=== PATIENT | female | born 1965 | race Two or more races ===

== ENCOUNTER → 2024-05-24 | Outpatient (CLI) | payer OTHER, MEDICAID, SELFPAY ==
--- NOTE | 2024-05-24 09:22 | XR_ITS ---
Examination:Left hip AP, lateral, AP pelvis 3 views Technique: Hip AP lateral, AP pelvis, 3 views Exam date and time:May 24, 2024 0925 hours INDICATIONS: Left hip pain several months. FINDINGS: Moderate left hip osteoarthritis No hip fracture or hip dislocation Moderate right hip osteoarthritis. Bones of the pelvis intact IMPRESSION: Moderate bilateral hip osteoarthritis.
[2024-05-24 10:32] LABS: Basophils % (Auto) 1 % (0-2.5); Eosinophils % (Auto) 1 % (0-10); Hematocrit 36.9 % (36.0-46.0); Hemoglobin 12.2 g/dL (12.0-16.0); Immature Granulocytes % (Auto) 1 % (0-0); Immature Granulocytes Auto 0.02 Thou/mm3 (0.00-0.00); Lymphocytes # (Auto) 0.7 Thou/mm3 (1.0-4.8); Lymphocytes % (Auto) 16 % (10-50); Mean Corpuscular HGB Conc 33.1 g/dl (31.0-37.0); Mean Corpuscular Hemoglobin 32.2 pg (25.0-35.0); Mean Corpuscular Volume 97 fL (80-100); Monocytes # (Auto) 0.4 Thou/mm3 (0.0-0.8); Monocytes % (Auto) 9 % (0-12); Neutrophils # (Auto) 3.1 Thou/mm3 (1.8-7.7); Neutrophils % (Auto) 73 % (37-80); Nucleated Red Blood Cell % 0 /100 WBC (0); Platelet Count 185 Thou/mm3 (140-440); RDW Standard Deviation 53.1 fL (36.4-46.3); Red Blood Count 3.79 Miln/mm3 (4.00-5.20); White Blood Count 4.3 Thou/mm3 (3.6-11.0)
[2024-05-24 11:02] LABS: Sed Rate (ESR) 7 mm/hr (0-30)
[2024-05-24 11:12] LABS: Alanine Aminotransferase 39 U/L (10-49); Albumin, Serum 4.4 gm/dL (3.5-5.0); Albumin/Globulin Ratio 1.8 (1.2-2.2); Alkaline Phosphatase 68 U/L (46-116); Anion Gap 8 (7-16); Aspartate Amino Transferase 32 U/L (0-34); BUN/Creatinine Ratio 21 Ratio (12-20); Bilirubin,Total 0.6 mg/dL (0.3-1.2); Blood Urea Nitrogen 15 mg/dL (9-23); C-Reactive Protein < 0.4 mg/dL (0.0-0.9); Calcium 9.4 mg/dL (8.3-10.6); Calcium (Corrected) 9.4 mg/dL (8.5-10.1); Carbon Dioxide 25.3 mMol/L (20.0-31.0); Chloride 108 mMol/L (98-107); Creatinine (Component) 0.7 mg/dL (0.6-1.3); Globulin 2.5 gm/dL (2.3-3.5); Glucose 132 mg/dL (74-106); Osmolality,Calculated 284 (275-295); Potassium 3.8 mMol/L (3.4-5.1); Sodium 141 mMol/L (136-145); Total Protein 6.9 gm/dL (5.7-8.2); eGFR > 60 See Note
== END | disposition home or self-care (01) ==
PROVIDERS: PCP Family Medicine; Referring Provider Internal Medicine; Visit Provider Radiology Diagnostic Radiology
DX: M16.0 Bilateral primary osteoarthritis of hip (principal); G35 Multiple sclerosis; L40.0 Psoriasis vulgaris; L40.59 Other psoriatic arthropathy; M17.0 Bilateral primary osteoarthritis of knee; M25.552 Pain in left hip; M79.7 Fibromyalgia; R21 Rash and other nonspecific skin eruption; Z92.25 Personal history of immunosuppression therapy
CPT/HCPCS: 36415; 73502; 80053; 85025; 85652; 86140

== ENCOUNTER → 2024-06-02 | Outpatient (CLI) | payer OTHER, MEDICAID, SELFPAY ==
[2024-06-02 09:53] LABS: Quantiferon-TB* See Sep Rpt
== END | disposition home or self-care (01) ==
LOC: COPL 09:30
PROVIDERS: PCP Family Medicine; Referring Provider Nurse Practitioner Family; Visit Provider Nurse Practitioner Family
DX: L40.0 Psoriasis vulgaris (principal)
CPT/HCPCS: 86480

== ENCOUNTER → 2024-06-29 | Outpatient (CLI) | payer OTHER, MEDICAID, SELFPAY ==
--- NOTE | 2024-06-29 10:51 | XR_ITS ---
Examination: PA lateral chest 2 views Technique: Upright PA lateral chest 2 views Exam date and time: June 29, 2024 1012 hrs. Indications: Coughing beginning 3 weeks ago. Findings: Pneumonia left base and lingular segment left upper lobe Right lung clear Normal heart size Impression: Pneumonia left base and lingular segment left upper lobe
== END | disposition home or self-care (01) ==
PROVIDERS: PCP Family Medicine; Referring Provider Family Medicine; Visit Provider Family Medicine
DX: J18.9 Pneumonia, unspecified organism (principal)
CPT/HCPCS: 71046

== ENCOUNTER → 2024-08-05 | Outpatient (BNVA) | payer OTHER, MEDICAID, SELFPAY | END | disposition home or self-care (01) | PROVIDERS: PCP Family Medicine; Referring Provider Family Medicine; Visit Provider Urology | DX: N31.9 Neuromuscular dysfunction of bladder, unspecified (principal); G89.4 Chronic pain syndrome; E11.9 Type 2 diabetes mellitus without complications; G35 Multiple sclerosis; E66.9 Obesity, unspecified; Z68.35 Body mass index [BMI] 35.0-35.9, adult | CPT/HCPCS: 81003; 99212; G0463 ==

== ENCOUNTER → 2024-08-13 | Outpatient (CLI) | payer OTHER, MEDICAID, SELFPAY ==
[2024-08-13 10:39] LABS: Basophils % (Auto) 1 % (0-2.5); Eosinophils # (Auto) 0.1 Thou/mm3 (0.0-0.5); Eosinophils % (Auto) 2 % (0-10); Hematocrit 38.2 % (36.0-46.0); Hemoglobin 12.6 g/dL (12.0-16.0); Immature Granulocytes % (Auto) 0 % (0-0); Immature Granulocytes Auto 0.01 Thou/mm3 (0.00-0.00); Lymphocytes # (Auto) 0.7 Thou/mm3 (1.0-4.8); Lymphocytes % (Auto) 15 % (10-50); Mean Corpuscular Hemoglobin 32.6 pg (25.0-35.0); Mean Corpuscular Volume 99 fL (80-100); Monocytes # (Auto) 0.4 Thou/mm3 (0.0-0.8); Monocytes % (Auto) 8 % (0-12); Neutrophils # (Auto) 3.4 Thou/mm3 (1.8-7.7); Neutrophils % (Auto) 74 % (37-80); Nucleated Red Blood Cell % 0 /100 WBC (0); Platelet Count 183 Thou/mm3 (140-440); Red Blood Count 3.86 Miln/mm3 (4.00-5.20); White Blood Count 4.6 Thou/mm3 (3.6-11.0)
[2024-08-13 10:54] LABS: Alanine Aminotransferase 19 U/L (10-49); Albumin, Serum 4.4 gm/dL (3.5-5.0); Alkaline Phosphatase 85 U/L (46-116); Anion Gap 9 (7-16); Aspartate Amino Transferase 23 U/L (0-34); BUN/Creatinine Ratio 17 Ratio (12-20); Bilirubin,Total 0.6 mg/dL (0.3-1.2); Blood Urea Nitrogen 12 mg/dL (9-23); C-Reactive Protein < 0.5 mg/dL (0.0-0.9); Calcium 9.5 mg/dL (8.3-10.6); Calcium (Corrected) 9.5 mg/dL (8.5-10.1); Carbon Dioxide 25.4 mMol/L (20.0-31.0); Chloride 109 mMol/L (98-107); Creatinine (Component) 0.7 mg/dL (0.6-1.3); Globulin 2.2 gm/dL (2.3-3.5); Glucose 131 mg/dL (74-106); Osmolality,Calculated 286 (275-295); Potassium 3.9 mMol/L (3.4-5.1); Sodium 143 mMol/L (136-145); Total Protein 6.6 gm/dL (5.7-8.2); eGFR > 60 See Note
[2024-08-13 11:12] LABS: Sed Rate (ESR) 23 mm/hr (0-30)
[2024-08-13 11:34] LABS: Hepatitis A Antibody IgM Non Reactive (Non React); Hepatitis B Core Antibody IgM Non Reactive (Non React); Hepatitis B Surface Antigen Non Reactive (Non React); Hepatitis C Antibody Non Reactive (Non React)
== END | disposition home or self-care (01) ==
LOC: COPL 09:22
PROVIDERS: PCP Family Medicine; Referring Provider Physician Assistant Medical
DX: D50.9 Iron deficiency anemia, unspecified (principal); E11.40 Type 2 diabetes mellitus with diabetic neuropathy, unspecified; E78.00 Pure hypercholesterolemia, unspecified; F34.1 Dysthymic disorder; G35 Multiple sclerosis; I10 Essential (primary) hypertension; L40.0 Psoriasis vulgaris; L40.59 Other psoriatic arthropathy; M17.0 Bilateral primary osteoarthritis of knee; M23.50 Chronic instability of knee, unspecified knee; M25.512 Pain in left shoulder; M25.552 Pain in left hip; M54.2 Cervicalgia; M79.645 Pain in left finger(s); M79.7 Fibromyalgia; N63.20 Unspecified lump in the left breast, unspecified quadrant; R21 Rash and other nonspecific skin eruption; R76.11 Nonspecific reaction to tuberculin skin test without active tuberculosis; S46.812A Strain of other muscles, fascia and tendons at shoulder and upper arm level, left arm, initial encounter; Z68.35 Body mass index [BMI] 35.0-35.9, adult; Z92.25 Personal history of immunosuppression therapy; X58.XXXA Exposure to other specified factors, initial encounter
CPT/HCPCS: 36415; 80053; 80074; 85025; 85652; 86140

== ENCOUNTER → 2024-08-17 | Outpatient (CLI) | payer OTHER, MEDICAID, SELFPAY ==
[2024-08-17 10:01] LABS: Quantiferon-TB* See Sep Rpt
== END | disposition home or self-care (01) ==
LOC: COPL 09:36
PROVIDERS: PCP Family Medicine; Referring Provider Nurse Practitioner; Visit Provider Nurse Practitioner
DX: L40.0 Psoriasis vulgaris (principal)
CPT/HCPCS: 86480

== ENCOUNTER → 2024-08-31 | Outpatient (CLI) | payer OTHER, MEDICAID, SELFPAY ==
--- NOTE | 2024-08-31 13:00 | XR_ITS ---
Examination: Retroperitoneal ultrasound, complete Technique: Multiple high resolution grayscale images of the retroperitoneum obtained, including kidneys and bladder. Exam date and time:12/01/2024 1300 hours INDICATIONS: Urinary incontinence 6 months, diagnosis neurogenic bladder FINDINGS: Right kidney 11.8 cm cortex 2.1 cm Left kidney 12.4 cm cortex 1.7 cm 13 mm upper pole 17 mm upper pole left renal cyst Moderate bilateral renal parenchymal scar formation No bladder mass or bladder calculi, bladder prevoid volume 203 cc IMPRESSION: Moderate bilateral renal parenchymal scar formation, no hydronephrosis
== END | disposition home or self-care (01) ==
PROVIDERS: PCP Family Medicine; Referring Provider Urology; Visit Provider Urology
DX: N28.89 Other specified disorders of kidney and ureter (principal)
CPT/HCPCS: 76770

== ENCOUNTER → 2024-09-14 | Outpatient (BNVA) | payer OTHER, MEDICAID, SELFPAY | END | disposition home or self-care (01) | PROVIDERS: PCP Family Medicine; Referring Provider Family Medicine; Visit Provider Urology | DX: D41.4 Neoplasm of uncertain behavior of bladder (principal); N35.92 Unspecified urethral stricture, female; N31.9 Neuromuscular dysfunction of bladder, unspecified; G35 Multiple sclerosis | CPT/HCPCS: 52214; 81003; 96372; A4217; A4649; C1894; J1580; A9270 ==

== ENCOUNTER → 2024-10-12 | Outpatient (CLI) | payer OTHER, MEDICAID, SELFPAY ==
[2024-10-12 11:20] LABS: Albumin, Serum 4.3 gm/dL (3.5-5.0); Anion Gap 8 (7-16); BUN/Creatinine Ratio 20 Ratio (12-20); Blood Urea Nitrogen 16 mg/dL (9-23); Calcium 9.1 mg/dL (8.3-10.6); Calcium (Corrected) 9.1 mg/dL (8.5-10.1); Carbon Dioxide 25.6 mMol/L (20.0-31.0); Chloride 105 mMol/L (98-107); Creatinine (Component) 0.8 mg/dL (0.6-1.3); Glucose 182 mg/dL (74-106); Osmolality,Calculated 283 (275-295); Phosphorous 3.1 mg/dL (2.4-5.1); Sodium 139 mMol/L (136-145); eGFR > 60 See Note
== END | disposition home or self-care (01) ==
LOC: COPL 10:32
PROVIDERS: PCP Family Medicine; Referring Provider Family Medicine; Visit Provider Family Medicine
DX: Z01.812 Encounter for preprocedural laboratory examination (principal); E11.21 Type 2 diabetes mellitus with diabetic nephropathy
CPT/HCPCS: 36415; 80069

== ENCOUNTER → 2024-10-13 | Outpatient (CLI) | payer OTHER, MEDICAID, SELFPAY ==
--- NOTE | 2024-10-13 08:00 | XR_ITS ---
Examination: CT abdomen and pelvis without contrast. Coronal 3-D reconstructions. Sagittal 2-D reconstructions. Date and time of exam:October 13, 2024 0759 hours INDICATIONS: Diarrhea 6 months CTDI: vol (mGy): 10.6 DLP: (mGycm): 624 Technique: Axial images of the abdomen have been obtained, 3 mm slice thickness Intravenous contrast material has not been administered. Low dose protocols were performed. One or more of the following dose reduction techniques were used; automated exposure control, adjustment of the mA and/or KV according to patient size, use of iterative reconstruction technique. Findings: No focal liver or splenic lesions No gallstones No pancreatic or adrenal mass Perinephric stranding No renal or ureteral calculi, no hydronephrosis Aorta calcification no aneurysmal dilatation No pericecal inflammatory change No bowel obstruction No diverticulitis No uterine or adnexal mass Urinary bladder wall thickening up to 8 mm Advanced disc narrowing L5-S1 IMPRESSION: Urinary bladder wall thickening up to 8 mm, cystitis would be included in the differential
== END | disposition home or self-care (01) ==
LOC: CCTX 07:38
PROVIDERS: PCP Family Medicine; Referring Provider Family Medicine; Visit Provider Family Medicine
DX: N32.9 Bladder disorder, unspecified (principal); R19.4 Change in bowel habit
CPT/HCPCS: 74176

== ENCOUNTER → 2024-11-17 | Outpatient (CLI) | payer OTHER, MEDICAID, SELFPAY ==
[2024-11-17 09:29] LABS: Quantiferon-TB* See Sep Rpt
[2024-11-17 10:31] LABS: Basophils # (Auto) 0.1 Thou/mm3 (0.0-0.2); Basophils % (Auto) 1 % (0-2.5); Eosinophils # (Auto) 0.1 Thou/mm3 (0.0-0.5); Eosinophils % (Auto) 3 % (0-10); Hematocrit 36.8 % (36.0-46.0); Hemoglobin 12.1 g/dL (12.0-16.0); Immature Granulocytes Auto 0.02 Thou/mm3 (0.00-0.00); Lymphocytes # (Auto) 0.7 Thou/mm3 (1.0-4.8); Lymphocytes % (Auto) 19 % (10-50); Mean Corpuscular HGB Conc 32.9 g/dl (31.0-37.0); Mean Corpuscular Hemoglobin 31.3 pg (25.0-35.0); Mean Corpuscular Volume 95 fL (80-100); Monocytes # (Auto) 0.3 Thou/mm3 (0.0-0.8); Monocytes % (Auto) 9 % (0-12); Neutrophils # (Auto) 2.4 Thou/mm3 (1.8-7.7); Neutrophils % (Auto) 68 % (37-80); Nucleated Red Blood Cell # 0.00 Thou/mm3 (0.00-0.00); Nucleated Red Blood Cell % 0 /100 WBC (0); Platelet Count 158 Thou/mm3 (140-440); RDW Standard Deviation 51.1 fL (36.4-46.3); Red Blood Count 3.87 Miln/mm3 (4.00-5.20); White Blood Count 3.5 Thou/mm3 (3.6-11.0)
[2024-11-17 10:49] LABS: Alanine Aminotransferase 21 U/L (10-49); Albumin, Serum 4.0 gm/dL (3.5-5.0); Albumin/Globulin Ratio 1.7 (1.2-2.2); Alkaline Phosphatase 105 U/L (46-116); Anion Gap 9 (7-16); Aspartate Amino Transferase 21 U/L (0-34); BUN/Creatinine Ratio 15 Ratio (12-20); Bilirubin,Total 0.6 mg/dL (0.3-1.2); Blood Urea Nitrogen 12 mg/dL (9-23); C-Reactive Protein < 0.5 mg/dL (0.0-0.9); Calcium 9.2 mg/dL (8.3-10.6); Calcium (Corrected) 9.2 mg/dL (8.5-10.1); Carbon Dioxide 26.5 mMol/L (20.0-31.0); Chloride 107 mMol/L (98-107); Creatinine (Component) 0.8 mg/dL (0.6-1.3); Globulin 2.3 gm/dL (2.3-3.5); Glucose 157 mg/dL (74-106); Osmolality,Calculated 285 (275-295); Potassium 3.9 mMol/L (3.4-5.1); Sodium 142 mMol/L (136-145); Total Protein 6.3 gm/dL (5.7-8.2); eGFR > 60 See Note
[2024-11-17 11:15] LABS: Sed Rate (ESR) 22 mm/hr (0-30)
== END | disposition home or self-care (01) ==
LOC: COPL 09:11
PROVIDERS: PCP Family Medicine
DX: D50.9 Iron deficiency anemia, unspecified (principal); E11.40 Type 2 diabetes mellitus with diabetic neuropathy, unspecified; E78.00 Pure hypercholesterolemia, unspecified; F34.1 Dysthymic disorder; G35 Multiple sclerosis; I10 Essential (primary) hypertension; L40.0 Psoriasis vulgaris; L40.59 Other psoriatic arthropathy; M17.0 Bilateral primary osteoarthritis of knee; M23.50 Chronic instability of knee, unspecified knee; M25.512 Pain in left shoulder; M25.552 Pain in left hip; M25.561 Pain in right knee; M25.562 Pain in left knee; M54.2 Cervicalgia; M79.645 Pain in left finger(s); M79.7 Fibromyalgia; N63.20 Unspecified lump in the left breast, unspecified quadrant; R21 Rash and other nonspecific skin eruption; R76.11 Nonspecific reaction to tuberculin skin test without active tuberculosis; S46.812A Strain of other muscles, fascia and tendons at shoulder and upper arm level, left arm, initial encounter; X58.XXXA Exposure to other specified factors, initial encounter; Z92.25 Personal history of immunosuppression therapy
CPT/HCPCS: 36415; 80053; 85025; 85652; 86140; 86480

== ENCOUNTER 2024-11-22 08:10 | Day surgery (SDC) | payer OTHER, MEDICAID, SELFPAY ==
--- NOTE | 2024-11-19 06:00 | EKG_ITS ---
[facility] Test Date: 2024-11-19 Pat Name: MARTHA SHARIF Department: Room: - Gender: Female Manager Floral: JAMEY : 1965 Requested By: Matthew White Order Number: [id number] Reading MD: Matthew White Measurements Intervals [place] Rate: 90 P: -24 OR: 144 QRS: -73 QRSD: 77 T: 29 QT: 356 QTc: 437 Interpretive Statements SINUS RHYTHM LEFT ANTERIOR FASCICULAR BLOCK [QRS AXIS <= -45, QR IN I, RS IN II] POSSIBLE ANTERIOR MYOCARDIAL INFARCTION , PROBABLY OLD [30 ms Q WAVE IN V3/V4, OR R < 0.2 mV IN V4] INFERIOR MYOCARDIAL INFARCTION , PROBABLY OLD [40+ ms Q WAVE AND/OR ST/T ABNORMALITY IN II/aVF] No previous ECG available for comparison /store/S0/[id number]
[2024-11-19 13:31] VITALS: BMI 35.4
[2024-11-19 15:32] LABS: INR 1.0 (0.9-1.3); Partial Thromboplastin Time 23.4 Seconds (22.0-36.0); Prothrombin Time 11.4 Seconds (9.0-12.2)
[2024-11-19 15:45] LABS: Alanine Aminotransferase 22 U/L (10-49); Albumin, Serum 4.1 gm/dL (3.5-5.0); Albumin/Globulin Ratio 1.6 (1.2-2.2); Alkaline Phosphatase 107 U/L (46-116); Anion Gap 12 (7-16); Aspartate Amino Transferase 24 U/L (0-34); BUN/Creatinine Ratio 15 Ratio (12-20); Bilirubin,Total 0.5 mg/dL (0.3-1.2); Blood Urea Nitrogen 15 mg/dL (9-23); Calcium 9.3 mg/dL (8.3-10.6); Calcium (Corrected) 9.3 mg/dL (8.5-10.1); Carbon Dioxide 24.1 mMol/L (20.0-31.0); Chloride 106 mMol/L (98-107); Creatinine (Component) 1.0 mg/dL (0.6-1.3); Estimated Creatinine Clearance 66.4 mL/min (>60); Globulin 2.5 gm/dL (2.3-3.5); Glucose 219 mg/dL (74-106); Osmolality,Calculated 290 (275-295); Potassium 4.2 mMol/L (3.4-5.1); Sodium 142 mMol/L (136-145); Total Protein 6.6 gm/dL (5.7-8.2); eGFR > 60 See Note
[2024-11-22] VITALS (7 sets, daily range): BP systolic 98–146; BP diastolic 64–82; PULSE 83–102; RESP 12–23; TEMP 36.8–37.1; O2SAT 93–99; BMI 34.2
[2024-11-22] MEDS: SODIUM CHLORIDE 0.9% 500 ML 500 ML 20 ML IV (10:14)
== END 2024-11-22 11:05 | disposition home or self-care (01) ==
PROVIDERS: PCP Nurse Practitioner Family; Referring Provider Specialist; Visit Provider Specialist
PROC: 0DBE8ZX Excision of Large Intestine, Via Natural or Artificial Opening Endoscopic, Diagnostic (ICD-10-PCS; CPT 45380; principal; 2024-11-22 09:00)
DX: K52.9 Noninfective gastroenteritis and colitis, unspecified (principal); K63.89 Other specified diseases of intestine; K62.89 Other specified diseases of anus and rectum; Z01.810 Encounter for preprocedural cardiovascular examination; I44.4 Left anterior fascicular block; I10 Essential (primary) hypertension; E10.9 Type 1 diabetes mellitus without complications
CPT/HCPCS: 45380; 36415; 80053; 85610; 85730; 93005; J7999

== ENCOUNTER → 2024-12-14 | Outpatient (CLI) | payer OTHER, MEDICAID, SELFPAY ==
--- NOTE | 2024-12-14 08:30 | XR_ITS ---
Examination: Screening digital mammography, bilateral Computer aided detection 3-D breast Tomosynthesis, bilateral Date and time of exam: 12/14/2024, 8:43 AM Comparisons: January 2020 through November 2022 Indications: Screening Technique: Nonmagnified MLO, CC views of the breasts to been obtained, reconstructed from 3-D Tomosynthesis images. R2 computer aided detection program utilized for evaluation of suspicious masses and/or abnormal calcifications. 3-D Tomosynthesis images obtained. Technologist: Findings: There are scattered areas of fibroglandular density. No evidence of abnormal masses or suspicious calcifications. Stable left postbiopsy marker clips. Impression: BI-RADS category 2: Benign findings Recommend 1 year follow-up mammogram
== END | disposition home or self-care (01) ==
PROVIDERS: Referring Provider Nurse Practitioner Family; Visit Provider Nurse Practitioner Family
DX: Z12.31 Encounter for screening mammogram for malignant neoplasm of breast (principal); R92.323 Mammographic fibroglandular density, bilateral breasts
CPT/HCPCS: 77063; 77067

== ENCOUNTER 2024-12-15 11:40 | Outpatient (AMB) | payer OTHER, MEDICAID, SELFPAY ==
[2024-12-15 12:06] VITALS: BP 132/79; PULSE 98; RESP 16; TEMP 36.2; O2SAT 98
--- NOTE | 2024-12-15 12:06 | AMB.GYNCLNOT ---
Vital Signs 12/15/24 12:06 Weight 91.399 kg Weight Measurement Method Standing Scale BP 132/79 H Blood Pressure Source Automatic Cuff Blood Pressure Location Left Upper Arm Position Sitting Respiration 16 Pulse 98 Pulse Source Monitor Temp 97.2 F Temp Source Oral Pulse Oximetry (%) 98 Oxygen Delivery Method Room Air Allergies/Home Meds Allergies & Medications Allergies alcohol Allergy (Intermediate, Verified 12/15/24 12:07) BREAKS SKIN Pork/Porcine Containing Products Allergy (Mild, Verified 12/15/24 12:07) THROAT SWOLLEN Sulfa (Sulfonamide Antibiotics) Allergy (Mild, Verified 12/15/24 12:07) Rash pseudoephedrine Allergy (Unknown, Verified 12/15/24 12:07) SWELLING triprolidine Allergy (Unknown, Verified 12/15/24 12:07) SWELLING Medication Reconciliation Trazodone * (DESYREL *) 100 mg PO HS #0 tabs 12/26/15 [History Confirmed 12/15/24] atorvastatin 20 mg tablet (Lipitor) 20 mg PO HS #0 tabs 12/26/15 [History Confirmed 12/15/24] lisinopril 20 mg tablet 20 mg PO QDAY #0 tabs 12/26/15 [History Confirmed 12/15/24] pantoprazole 40 mg tablet,delayed release (Protonix) 40 mg PO QDAY ##0 12/26/15 [History Confirmed 12/15/24] metoprolol tartrate 25 mg tablet 25 mg PO QAM #0 tabs 01/03/17 [History Confirmed 12/15/24] vortioxetine 20 mg tablet (Trintellix) 20 mg PO QDAY 04/11/20 [History Confirmed 12/15/24] insulin degludec 200 unit/mL (3 mL) subcutaneous pen (Tresiba FlexTouch U-200 insulin) 34 unit subcut QHS 08/05/24 [History Confirmed 12/15/24] naproxen sodium 220 mg capsule (Aleve) 220 mg PO Q8H PRN pain 08/05/24 [History Confirmed 12/15/24] tirzepatide 15 mg/0.5 mL subcutaneous pen injector (Mounjaro) 15 mg subcut QWEEK 08/05/24 [History Confirmed 12/15/24] tizanidine 4 mg tablet 4 mg PO QHS PRN muscle spasticity 08/05/24 [History Confirmed 12/15/24] oxybutynin chloride 10 mg tablet,extended release 24 hr 10 mg PO QDAY 09/14/24 [History Confirmed 12/15/24] aripiprazole 5 mg tablet 5 mg PO QDAY 11/22/24 [History Confirmed 12/15/24] cladribine(multiple sclerosis) 10 mg tablet (Mavenclad (10 tablet pack)) 10 mg PO QDAY 11/22/24 [History Confirmed 12/15/24] guselkumab 200 mg/2 mL subcutaneous pen injector (Tremfya Pen) 200 mg subcut 11/22/24 [History Confirmed 12/15/24] hydroxyzine HCl 10 mg tablet 10 mg PO QDAY 11/22/24 [History Confirmed 12/15/24] insulin degludec 100 unit/mL (3 mL) subcutaneous pen (Tresiba FlexTouch U-100 insulin) 100 unit subcut BID 11/22/24 [History Confirmed 12/15/24] methocarbamol 750 mg tablet 750 mg PO TID 11/22/24 [History Confirmed 12/15/24] pregabalin 100 mg capsule (Lyrica) 100 mg PO QDAY 11/22/24 [History Confirmed 12/15/24] ubrogepant 100 mg tablet (Ubrelvy) mg 11/22/24 [History Confirmed 12/15/24] Intake Visit Data Collection New Patient or Established: Established Patient (seen at [facility] within 3 years) Reason for Visit:: C Seen by Clinical Staff ONLY (RN/MA): No Alarm Security Or Surveillance Monitor Required: No Do You Feel Safe at Home: Yes Authorities Contacted: N/A PCP or OBGYN visit in last 3 months: Yes Date of Last PCP or OBGYN visit: 11/22/24 Hx Now: No Are you currently on any form of Control: No Pain Present Currently: No Pain Scale Used: Mitchell-Peters/Numerical Pain scale:: 0 Smoking Status Smoking Status: Never smoker 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 Menstrual regularity: regular Flow: normal Monthly: No Age at menarche: 15 Menopausal: No If menopausal, at what age did it occur: 49 Currently sexually active: Yes [employer]: Past Medical History Past Medical History: Yes Hx Neurological Disorders, Yes Hx Cardiac Disorders, Yes Hx Hypertension, Yes Hx Gastrointestinal Disorders, No Hx Renal Disease and No Hx Diabetes Mellitus Type 1 Questionnaires Covid-19 Vaccine Questionnaire Has patient been vacinated for Covid-19 Have you been vacinated for Covid-19: Yes PHQ-9 PHQ-2 Over the last 2 weeks, how often have you been bothered by any of the following problems? 1. Little interest or pleasure in doing things: not at all 2. Feeling down, depressed, or hopeless: not at all Total score: 0 PHQ-9 3. Trouble falling or staying asleep, or sleeping too much: Not at all 4. Feeling tired or having little energy: Not at all 5. Poor appetite or overeating: Not at all 6. Feeling bad about yourself - or that you are a failure or have let yourself or your family down: Not at all 7. Trouble concentrating on things, such as reading the newspaper or watching television: Not at all 8. Moving or speaking so slowly that other people could have noticed? - Or the opposite - being so fidgety or restless that you have been moving around a lot more than usual: not at all 9. Thoughts that you would be better off or of hurting yourself in some way: Not at all Total score: 0 If you checked off any problems, how difficult have these problems made it for you to do your work, take care of things at home, or get along with other people?: not difficult at all Source: Developed by Drs. Zacarias Hubbard, Jaqueline Marquez, Pk Bowman and colleagues, with an educational vivi from [employer]. Depression screen completed yes Social History Living Situation History Marital Status: Lives With: Family Housing: House Tobacco History Smoking Status: Never smoker Second Hand Smoke Exposure: No Alcohol History Alcohol Intake: Never Domestic Abuse History Do You Feel Safe at Home: Yes History of Present Illness HPI Narrative 59-year-old 3 para 3 patient had a demise with her first baby at term. Menarche started at 11 years old. Patient has been menopausal for the last 10 years. Started [address] Yusuf for chronic health issues. She is type II diabetic and she has chronic hypertension. Patient takes 5 mg lisinopril daily and Metropol metoprolol 25 mg daily. She also is on Lyrica for arthritis. She sees Dr. Yusuf monthly because she takes [place] for joint pain. Patient drinks occasionally. Denies tobacco use. She has had 3 C-sections. And she had arthroscopic surgery on her shoulder. Denies any [employer]EM[employer] complaints at this Review of Systems Review of Systems Systems Reviewed: All systems reviewed, normal except as documented Exam Narrative Physical exam: Euthyroid. Both breasts are soft and. Symmetrical. Nontender. No masses palpated. No skin changes. Nipples erect. Normal heart rate and rhythm. Lungs are clear. Abdomen is soft nontender. No masses palpated. Perineum is intact no lesions noted. Vagina is pink. Good rugae. Good turgor. Small amount of leukorrhea. Parous cervix no inflammation or lesions noted. Uterus is mobile, nontender. Normal size and shape General Limitations: no limitations General Appearance: alert, in no apparent distress, comfortable, cooperative, healthy appearing, well developed and well groomed Head Head exam: atraumatic, normocephalic and normal inspection ENT ENT exam: Present normal exam, normal oropharynx and mucous membranes moist Neck Neck exam: Present normal inspection, full ROM and trachea midline Chest Chest inspection: Present normal inspection and symmetric chest wall rise Resp Respiratory exam: Present normal lung sounds bilaterally Card Cardiovascular exam: Present regular rate, normal rhythm and normal heart sounds Abdominal Abdominal exam: Present soft and normal bowel sounds Office Procedures OB Clinic LOC & Office Proc's Nursing/Assessment Patient Status: Established Patient OB Clinic Nursing Assessment: Medication Reconciliation, Update PMH in EMR and Vital Signs OB Clinic Coordination of Care: Education Complex Pt/Fam, Consent,records obtained, informed consent, Results/Orders obtained and Staff clarify orders Miscellaneous Interventions: Pelvic/Pap Smear Set up Established Patient Charge Established Patient Point Assignment: 90 Established Patient Point Charge: EP Level 3 (80-115) In Clinic Procedures Pap Smear: Yes Assessment & Plan Diagnosis / Problem List (1) Encounter for breast and pelvic examination: Status: Acute (2) Encounter for special screening examination for neoplasm of cervix: Status: Acute (3) Human papilloma virus (HPV) DNA test negative: Status: Acute Plan Pap smear today. Discussed self breast exam. Patient will follow-up with primary care for results. Discussed diet and exercise. Follow-up Pap smear will be in 5 years. Additional Plan Follow Up: 5 Years (pap) CARGO MATE: Papsmear Pap Smear Procedure Pre-op diagnosis general: pap Post-op diagnosis procedure note: Same [place] in room during procedure?: No Procedure position: lithotomy Speculum inserted, cervix visualized: Yes Cervical appearance: normal Collection method: spatula and cytobrush Specimen placed in liquid-based cytology medium: Yes Complications: No Patient tolerated procedure well: Yes Follow up pending results: appt for results review Procedure Notes:: tolerated well. vagina red, moderate leukorrhea, no masses seen
== END 2024-12-15 12:20 | disposition home or self-care (01) ==
LOC: HODSOBC 11:40
PROVIDERS: Supervising Provider Advanced Practice Midwife; Visit Provider Advanced Practice Midwife
DX: Z01.419 Encounter for gynecological examination (general) (routine) without abnormal findings (principal); I10 Essential (primary) hypertension; E11.9 Type 2 diabetes mellitus without complications; M19.90 Unspecified osteoarthritis, unspecified site; G35 Multiple sclerosis; Z79.85 Long-term (current) use of injectable non-insulin antidiabetic drugs; Z79.4 Long term (current) use of insulin; Z79.899 Other long term (current) drug therapy; Z88.2 Allergy status to sulfonamides; Z88.8 Allergy status to other drugs, medicaments and biological substances; Z91.048 Other nonmedicinal substance allergy status
CPT/HCPCS: 99213; Q0091; G0463

== ENCOUNTER → 2024-12-23 | Outpatient (CLI) | payer OTHER, MEDICAID, SELFPAY ==
[2024-12-23 09:58] LABS: Glucose Estimated Average 160 mg/dL (80-131); Hemoglobin A1C 7.2 % Hgb (4.8-6.0)
[2024-12-23 10:08] LABS: Vitamin B12 501 pg/mL (211-911); Vitamin D 25 Hydroxy Total 105.0 ng/mL (7.3-40.2)
[2024-12-23 10:19] LABS: Cardiac Risk Estimate 3.4 RATIO (3.7-5.6); Cholesterol 162 mg/dL (132-200); HDL Cholesterol 47 mg/dL (40-60); LDL Cholesterol,Calculated 76 mg/dL (0-130); Thyroid Stimulating Hormone 1.03 uIU/mL (0.55-4.78); Triglycerides 194 mg/dL (30-150)
[2024-12-23 10:19] LABS: Collection Type, Urine Clean Catch
[2024-12-23 11:00] LABS: Bacteria,Urine 1+; Bilirubin,Urine Negative (Negative); Blood,Urine Negative (Negative); Color,Urine Yellow (Lt Yel-Yel); Glucose, Urine Negative (Negative); Ketones,Urine Negative (Negative); Leukocyte Esterase,Urine Positive (Negative); Nitrite,Urine Positive (Negative); PH,Urine 7.0 (5.0-7.0); Protein,Urine Trace (Neg - Trace); RBC,Urine 3 /hpf (0-3); Specific Gravity,Urine 1.022 (1.001-1.035); Squamous Epithelial Cell,Urine 6 /hpf (0-5); Urobilinogen,Urine Negative mg/dL (0.0-1.0); WBC,Urine 12 /hpf (0-5)
[2024-12-23 11:01] LABS: Clarity,Urine Hazy (Clear/Hazy); Culture Indicated,Urine Yes
[2024-12-23 11:18] LABS: Creatinine MALB Rnd Ur 160 mg/dL (30-125); Microalbumin Creat Ratio 6 mg/gCrea (<30); Microalbumin, Random Urine 9 mg/L (0-300)
== END | disposition home or self-care (01) ==
PROVIDERS: PCP Family Medicine; Referring Provider Nurse Practitioner Family; Visit Provider Nurse Practitioner Family
DX: Z00.00 Encounter for general adult medical examination without abnormal findings (principal); E11.22 Type 2 diabetes mellitus with diabetic chronic kidney disease; I12.9 Hypertensive chronic kidney disease with stage 1 through stage 4 chronic kidney disease, or unspecified chronic kidney disease; N18.9 Chronic kidney disease, unspecified
CPT/HCPCS: 36415; 80061; 81001; 82043; 82306; 82570; 82607; 83036; 84443; 87077; 87086; 87186

== ENCOUNTER → 2025-02-07 | Outpatient (BNVA) | payer OTHER, MEDICAID, SELFPAY | END | disposition home or self-care (01) | PROVIDERS: PCP Family Medicine; Referring Provider Family Medicine; Visit Provider Urology | DX: N39.0 Urinary tract infection, site not specified (principal); E11.9 Type 2 diabetes mellitus without complications; I10 Essential (primary) hypertension; G35.D Multiple sclerosis, unspecified; E66.9 Obesity, unspecified; Z68.34 Body mass index [BMI] 34.0-34.9, adult | CPT/HCPCS: 81003; 99212; G0463 ==

== ENCOUNTER → 2025-02-25 | Outpatient (CLI) | payer OTHER, MEDICAID, SELFPAY ==
[2025-02-25 11:36] LABS: Parathyroid Hormone Intact 58.4 pg/ml (18.5-88.0)
[2025-02-25 11:38] LABS: Basophils # (Auto) 0.0 Thou/mm3 (0.0-0.2); Basophils % (Auto) 1 % (0-2.5); Eosinophils # (Auto) 0.1 Thou/mm3 (0.0-0.5); Eosinophils % (Auto) 2 % (0-10); Hematocrit 34.3 % (36.0-46.0); Hemoglobin 10.5 g/dL (12.0-16.0); Immature Granulocytes Auto 0.01 Thou/mm3 (0.00-0.00); Lymphocytes # (Auto) 0.6 Thou/mm3 (1.0-4.8); Lymphocytes % (Auto) 13 % (10-50); Mean Corpuscular HGB Conc 30.6 g/dl (31.0-37.0); Mean Corpuscular Hemoglobin 28.3 pg (25.0-35.0); Mean Corpuscular Volume 93 fL (80-100); Monocytes # (Auto) 0.5 Thou/mm3 (0.0-0.8); Monocytes % (Auto) 10 % (0-12); Neutrophils # (Auto) 3.5 Thou/mm3 (1.8-7.7); Neutrophils % (Auto) 75 % (37-80); Nucleated Red Blood Cell # 0.00 Thou/mm3 (0.00-0.00); Nucleated Red Blood Cell % 0 /100 WBC (0); Platelet Count 256 Thou/mm3 (140-440); RDW Standard Deviation 55.0 fL (36.4-46.3); Red Blood Count 3.71 Miln/mm3 (4.00-5.20); Vitamin D 25 Hydroxy Total 109.3 ng/mL (7.3-40.2); White Blood Count 4.7 Thou/mm3 (3.6-11.0)
[2025-02-25 11:39] LABS: Alanine Aminotransferase 15 U/L (10-49); Albumin, Serum 4.3 gm/dL (3.5-5.0); Albumin/Globulin Ratio 2.0 (1.2-2.2); Alkaline Phosphatase 112 U/L (46-116); Anion Gap 9 (7-16); Aspartate Amino Transferase 19 U/L (0-34); BUN/Creatinine Ratio 16 Ratio (12-20); Bilirubin,Total 0.5 mg/dL (0.3-1.2); Blood Urea Nitrogen 11 mg/dL (9-23); C-Reactive Protein 1.2 mg/dL (0.0-0.9); Calcium 9.2 mg/dL (8.3-10.6); Calcium (Corrected) 9.2 mg/dL (8.5-10.1); Carbon Dioxide 27.3 mMol/L (20.0-31.0); Chloride 105 mMol/L (98-107); Creatinine (Component) 0.7 mg/dL (0.6-1.3); Globulin 2.1 gm/dL (2.3-3.5); Glucose 130 mg/dL (74-106); Osmolality,Calculated 282 (275-295); Phosphorous 3.1 mg/dL (2.4-5.1); Potassium 4.5 mMol/L (3.4-5.1); Sodium 141 mMol/L (136-145); Total Protein 6.4 gm/dL (5.7-8.2); eGFR > 60 See Note
[2025-02-25 12:15] LABS: Sed Rate (ESR) 35 mm/hr (0-30)
== END | disposition home or self-care (01) ==
LOC: COPL 09:53
PROVIDERS: PCP Family Medicine
DX: D50.9 Iron deficiency anemia, unspecified (principal); E11.40 Type 2 diabetes mellitus with diabetic neuropathy, unspecified; E78.00 Pure hypercholesterolemia, unspecified; F34.1 Dysthymic disorder; G35.D Multiple sclerosis, unspecified; I10 Essential (primary) hypertension; L40.0 Psoriasis vulgaris; L40.59 Other psoriatic arthropathy; M17.0 Bilateral primary osteoarthritis of knee; M23.50 Chronic instability of knee, unspecified knee; M25.512 Pain in left shoulder; M25.552 Pain in left hip; M25.561 Pain in right knee; M25.562 Pain in left knee; M54.2 Cervicalgia; M79.645 Pain in left finger(s); M79.7 Fibromyalgia; N63.20 Unspecified lump in the left breast, unspecified quadrant; R21 Rash and other nonspecific skin eruption; R76.11 Nonspecific reaction to tuberculin skin test without active tuberculosis; S46.812A Strain of other muscles, fascia and tendons at shoulder and upper arm level, left arm, initial encounter; Z92.25 Personal history of immunosuppression therapy
CPT/HCPCS: 36415; 80053; 82306; 83970; 84100; 85025; 85652; 86140

== ENCOUNTER → 2025-03-25 | Outpatient (CLI) | payer OTHER, MEDICAID, SELFPAY ==
--- NOTE | 2025-03-25 14:36 | XR_ITS ---
Examination: Foot, right, 3 views Technique: AP, oblique, lateral views foot, 3 views Date and time of exam: March 25, 2025, 1503 hours INDICATIONS: Right foot pain months. FINDINGS: Status post bunionectomy with first metatarsal osteotomy Mild narrowing first metatarsophalangeal joint No acute fracture 6 mm plantar bony calcaneal spur IMPRESSION: Post bunionectomy with satisfactory alignment Mild narrowing first metatarsophalangeal joint 6 mm plantar bony calcaneal spur
== END | disposition home or self-care (01) ==
PROVIDERS: PCP Family Medicine; Referring Provider Physician Assistant; Visit Provider Physician Assistant
DX: M25.871 Other specified joint disorders, right ankle and foot (principal); M77.31 Calcaneal spur, right foot
CPT/HCPCS: 73630